=== PATIENT | female | born 1995 | race Caucasian/White ===

== ENCOUNTER → 2022-08-24 | Outpatient (CLI) | payer BC ==
[2022-08-25 02:35] LABS: African American GFR (CKD) 119.2 (60.0-200.0); Albumin 4.3 g/dL (3.8-4.9); Albumin/Globulin Ratio 1.58 (1.60-3.17); Anion Gap 8.8 mmol/L (10.00-18.00); BUN/Creat Ratio 17.07 Ratio (12.00-20.00); Blood Urea Nitrogen 13.3 mg/dL (9.0-27.0); Calcium 9.3 mg/dL (8.7-10.3); Follicle Stimulating Hormone 5.3 mIU/mL; Globulin 2.7 g/dL (1.6-3.3); Luteinizing Hormone 3.2 mIU/mL; Non-African American GFR(CKD) 102.9 (60.0-200.0); Potassium 4.6 mmol/L (3.5-5.5); T4, Free (Free Thyroxine) 0.96 ng/dL (0.800-1.800); Total Bilirubin 0.2 mg/dL (0.30-1.20)
[2022-08-25 02:38] LABS: Estradiol 9.3 pg/mL; Prolactin 11.6 ng/mL (2.800-29.200)
== END | disposition home or self-care (01) ==
LOC: LABWHC1 15:48
PROVIDERS: ATTEND Internal Medicine Endocrinology, Diabetes & Metabolism
DX: N91.2 Amenorrhea, unspecified (principal)
CPT/HCPCS: 36415; 80053; 82533; 82627; 82670; 83001; 83002; 83498; 84146; 84305; 84439; 84443; 84480; 86376

== ENCOUNTER → 2022-10-10 | Outpatient (CLI) | payer BC ==
[2022-10-10 20:36] LABS: % Iron Saturation 27.09 (12.00-45.00); ALT 16 U/L (8-44); AST 21 U/L (13-35); Albumin 4.1 d/dL (3.8-4.9); Albumin/Globulin Ratio 1.52 Ratio (1.60-3.17); Alkaline Phosphatase 83 U/L (41-126); Blood Urea Nitrogen 11.2 mg/dL (9.0-27.0); C Reactive Protein <0.30 mg/dL (0.00-0.80); Carbon Dioxide 24.6 mmol/L (21.6-31.8); Chloride 104 mmol/L (96-109); Estradiol 25.5 pg/mL; Ferritin 25.8 ng/mL (10.0-291.0); Globulin 2.7 d/dL (1.6-3.3); Glucose 118 mg/dL (70-110); Iron 107 UG/DL (50-170); Potassium 4.5 mmol/L (3.5-5.5); Sodium 139 mmol/L (135-145); Total Bilirubin 0.3 mg/dL (0.3-1.2); Total Iron Binding Capacity 395 UG/DL (228-460); Total Protein 6.8 d/dL (6.2-8.2)
[2022-10-10 21:44] LABS: Basophils # (A) 0.06 X 10*3/uL (0.00-0.10); Basophils % (A) 1.1 %; Eosinophils # (A) 0.27 X 10*3/uL (0.04-0.35); Eosinophils % (A) 4.9 %; HCT 37.1 % (37.2-46.3); HGB 12.4 d/dL (12.0-15.0); Lymphocytes # (A) 1.96 X 10*3/uL (0.90-5.00); Lymphocytes % (A) 35.5 %; MCH 30.9 pg (27.0-32.0); MCHC 33.4 d/dL (32.0-37.0); MCV 92.5 FL (80.0-97.0); Mean Platelet Volume 12.3 FL (9.5-12.2); Monocytes # (A) 0.58 X 10*3/uL (0.20-1.00); Monocytes % (A) 10.5 %; NRBC Per 100 WBC 0 X 10*3/uL (0.00-0.01); Neutrophils # (A) 2.64 X 10*3/uL (1.80-7.70); Neutrophils % (A) 47.8 %; Platelet Count 208 X 10*3/uL (140-440); RBC 4.01 X 10*6/uL (4.10-5.20); RDW 11.9 % (11.5-14.5); WBC 5.52 X 10*3/uL (4.50-10.00)
[2022-10-10 23:36] LABS: Follicle Stimulating Hormone 5.2 mIU/mL; Luteinizing Hormone 3.3 mIU/mL
== END | disposition home or self-care (01) ==
LOC: LABWHC1 13:42
PROVIDERS: ATTEND Internal Medicine Endocrinology, Diabetes & Metabolism
DX: N91.2 Amenorrhea, unspecified (principal); K50.10 Crohn's disease of large intestine without complications
CPT/HCPCS: 36415; 80053; 82670; 82728; 83001; 83002; 83540; 83550; 84144; 84443; 85025; 86140

== ENCOUNTER → 2022-12-21 | Outpatient (CLI) | payer BC ==
[2022-12-22 02:15] LABS: ALT 19 U/L (8-44); AST 22 U/L (13-35); Albumin 4.8 d/dL (3.8-4.9); Albumin/Globulin Ratio 1.78 Ratio (1.60-3.17); Alkaline Phosphatase 95 U/L (41-126); BUN/Creat Ratio 20.71 Ratio (12.00-20.00); Blood Urea Nitrogen 14.5 mg/dL (9.0-27.0); Calcium 9.6 mg/dL (8.7-10.3); Carbon Dioxide 26.4 mmol/L (21.6-31.8); Chloride 102 mmol/L (96-109); Estradiol <20.0 pg/mL; Globulin 2.7 d/dL (1.6-3.3); Glucose 90 mg/dL (70-110); Potassium 3.9 mmol/L (3.5-5.5); Sodium 138 mmol/L (135-145); T4, Free (Free Thyroxine) 0.99 ng/dL (0.80-1.80); Total Bilirubin 0.2 mg/dL (0.3-1.2); Total Protein 7.5 d/dL (6.2-8.2)
[2022-12-22 02:16] LABS: Follicle Stimulating Hormone 4.2 mIU/mL; Luteinizing Hormone 2.5 mIU/mL
[2022-12-22 03:16] LABS: Thyroid Peroxidase Antibodies 58.5 U/mL (0.0-33.0)
[2022-12-23 08:02] LABS: ACTH 16.8 pg/mL (0.00-45.99)
== END | disposition home or self-care (01) ==
LOC: LABWHC1 15:51
PROVIDERS: ATTEND Internal Medicine Endocrinology, Diabetes & Metabolism
DX: N91.2 Amenorrhea, unspecified (principal)
CPT/HCPCS: 36415; 80053; 82024; 82533; 82627; 82670; 83001; 83002; 83498; 84146; 84305; 84439; 84443; 84480; 86376

== ENCOUNTER → 2023-01-26 | Outpatient (CLI) | payer BC ==
--- NOTE | 2023-01-27 12:37 | MR ---
EXAMINATION TYPE: MR pituitary wo/w con DATE OF EXAM: 01/26/2023 11:31 AM CLINICAL INDICATION:Female, 27 years old with history of N91.2 AMENORRHEA, UNSPECIFIED; PHH, Amenorrh ea, unspecified. 1 year COMPARISON: None TECHNIQUE: Multi planar, multi sequence imaging was performed through the brain. Specialized thin s equences were obtained through the pituitary gland/sella turcica. Pre-and post gadolinium sequences were obtained. IV Contrast: 5 cc Gadobutrol FINDINGS: The mclain-white junctions, ventricular system, and basal cisterns appear unremarkable. The morphology of the pituitary gland is within normal limits. The pituitary stalk is not deviated. After administ ration of gadolinium, homogeneous pituitary enhancement is seen. The intracranial arterial flow voids are intact. IMPRESSION: 1. No pituitary gland abnormality. No convincing MRI evidence for pituitary micro or macroadenoma. If the patient has abnormal labs and/or symptoms possibly related to pituitary neoplasm I would conside r repeat MRI in 6-12 months time to reassess. 2. No evidence of intracranial mass nor acute/subacute CVA.
== END | disposition home or self-care (01) ==
LOC: RADMRIMAIN 10:07
PROVIDERS: ATTEND Internal Medicine Endocrinology, Diabetes & Metabolism
DX: N91.2 Amenorrhea, unspecified (principal)
CPT/HCPCS: 70553; A9585